=== PATIENT | male | born 1995 | race Two or more races ===

== ENCOUNTER 2025-05-10 11:32 | Emergency (ER) | payer OTHER ==
[~2025-05-10] VITALS: Ht 170.2 cm; Wt 87.1 kg
[2025-05-10 15:28] LABS: BASO % 0.5 % (0.1-1.2); EOS # 0.18 (0.04-0.54); EOS % 1.8 % (0.7-7.0); LYMPH # 1.46 (1.18-3.74); LYMPH % 14.9 % (19.3-53.1); MEAN PLATELET VOLUME 10.70 fl (9.4-12.4); MONO # 0.71 (0.24-0.82); MONO % 7.2 % (4.7-12.5); NEUT # 7.38 (1.56-6.13); NEUT % 75.4 % (34.0-71.1); RED CELL DISTRIBUTION WIDTH 13.0 % (11.6-14.4)
[2025-05-10 16:07] LABS: INR 1.09
[2025-05-10 16:38] LABS: ALT/SGPT 50.0 U/L (12-78); AST/SGOT 13.0 U/L (15-37); BILIRUBIN TOTAL 0.32 mg/dL (0.3-1.2); BUN CREA RATIO 10.0 (7.0-25.0); CREATININE SERUM 0.97 mg/dL (0.70-1.30); GFR 90.27; GLOBULINA 3.3 G/DL (2.4-3.5); GLUCOSE FASTING 98.0 mg/dL (65-100); OSMOLALITY SERUM 282.0 MOSM/KG (275-295); PHOSPHOKINASE CREATININE 77.0 U/L (39-308)
[2025-05-10 17:29] LABS: URINE APPEARANCE Clear; URINE BILIRRUBIN Negative (NEGATIVE); URINE BLOOD Negative; URINE COLOR Yellow; URINE GLUCOSE Negative (NEGATIVE); URINE KETONE Negative (NEGATIVE); URINE LEUKOCYTE Negative; URINE NITRATE Negative; URINE PROTEIN Negative (NEGATIVE); URINE UROBILINOGEN 1.0 E.U./dl
[2025-05-10 17:41] LABS: URINE BACTERIA 2.3 uL (0.0-1933); URINE CAST 0.00 uL (0.0-1.40); URINE EPITHELIAL CELLS 0.1 uL (0.0-38.8); URINE RBC 0.4 uL (0.0-20.8); URINE WBC 1.5 uL (0.0-23.2)
[2025-05-10 18:47] LABS: TSH 0.319 uIU/mL (0.358-3.74)
== END 2025-05-10 19:22 | disposition home or self-care (01) ==
LOC: EDBD 11:33 → ER 11:33
PROVIDERS: General Practice
DX: R42 Dizziness and giddiness (principal); F31.89 Other bipolar disorder; E05.80 Other thyrotoxicosis without thyrotoxic crisis or storm